=== PATIENT | male | born 1950 | race Caucasian/White ===

== ENCOUNTER → 2017-06-12 | Day surgery (SDC) | payer OTHER ==
[~2017-06-12] VITALS: Ht 185.4 cm; Wt 102.1 kg
[~2017-06-12] MED LIST: ANTIVERT/2525 MG PO; LISINOPRIL10 M1 PO; ULORIC40 MG PO; VERTICALM25 MG PO; ZOFRAN ODT4 MG SL
--- NOTE | ~2017-06-12 | O ---
[place], [place] OPERATIVE NOTE NAME: NATALIO MARTÍNEZ UNIT #: [id number] ROOM: DOCTOR: ALLISON PEÑA MD BIRTHDATE: [birth year] DOS: 06/12/2017 GASTROENDOSCOPIC REPORT INDICATIONS: This is a 66-year-old patient has presented for colonic screening, undergone investigation. ALLERGIES: No known medication. FAMILY HISTORY: Noncontributory. PAST SURGICAL HISTORY: Carpal tunnel right inguinal hernia. PAST MEDICAL HISTORY: Hypertension. SOCIAL HISTORY: Nonsmoker, nonalcohol consumer. PROCEDURE: Today's procedure part of investigation is colonoscopy. PREMEDICATION: Versed and Diprivan. SCOPE: Olympus folding colonoscope 10L video. REPORT: After putting the patient in left lateral position and application of lubricant to the scope, the scope was introduced. Thereafter, under direct visualization, advanced through the length of colon without difficulty. Base of the cecum explored, appendiceal was identified. Ileocecal valve was defined. No acute pathology was identified. Photographic series ____ base of cecum obtained. Scope was gradually withdrawn from ascending, transverse, descending colon. Air was suctioned out. The patient was extubated, tolerated the procedure well. IMPRESSION: Normal colonoscopic examination. PLAN AND DISCUSSION: High fiber fruit diet. ACTIVITY: Ad kory. FOLLOWUP: Routinely with you in office p.r.n., visit with us in GI Clinic. Thank you very much again for your kind referral. [place], [place] OPERATIVE NOTE NAME: NATALIO MARTÍNEZ UNIT #: [id number] ROOM: DOCTOR: ALLISON PEÑA MD BIRTHDATE: [birth year] ALLISON PEÑA MD CM:OPRECORD:OPERATIVE NOTE [id number] CECELIA PEÑA MD 06/12/17 1123 interface
[2017-06-12 08:50] VITALS: BP 130/72
[2017-06-12 10:30] VITALS: BP 98/58
[2017-06-12 10:45] VITALS: BP 109/72
[2017-06-12 11:00] VITALS: BP 115/74
== END ==
LOC: SDC 06-05 08:45
DX: Z12.11 Encounter for screening for malignant neoplasm of colon (principal); I10 Essential (primary) hypertension; Z79.899 Other long term (current) drug therapy; M10.9 Gout, unspecified
CPT/HCPCS: 00812; G0121

== ENCOUNTER 2017-12-04 21:13 | Emergency (ER) | payer OTHER ==
[~2017-12-04] VITALS: Ht 185.4 cm; Wt 98.0 kg
--- NOTE | ~2017-12-04 | EKG ---
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
[2017-12-04 22:17] LABS: BASO % 0.6 % (0.0-1.0); EOS # 0.2 10*3/uL (0.0-0.4); EOS % 5.8 % (1.0-4.0); HEMATOCRIT 40.6 % (42.0-52.0); HEMOGLOBIN 13.8 g/dl (14.0-18.0); LYMPH # 0.9 10*3/uL (1.3-4.4); LYMPH % 25.7 % (27.0-41.0); MEAN CORPUSCULAR HGB 30.9 pg (27.0-31.0); MEAN PLATELET VOLUME 10.9 fl (9.6-12.3); MONO # 0.4 10*3/uL (0.1-1.0); MONO % 12.9 % (3.0-9.0); NEUT # 1.9 10*3/uL (2.3-7.9); NEUT % 54.4 % (47.0-73.0); PLATELET COUNT AUTOMATED 154 10*3/uL (130-400); RED BLOOD COUNT 4.46 10*6/uL (4.50-5.90); RED CELL DISTRI WIDTH 12.7 % (0-14.5); WHITE BLOOD COUNT 3.4 10*3/uL (4.8-10.8)
[2017-12-04 22:39] LABS: ALKALINE PHOSPHATASE 65 U/L (45-117); BUN 22 mg/dl (7-24); CHLORIDE 107 mmol/L (98-107); CREATININE 1.33 mg/dL (0.70-1.30); LIPASE 197 U/L (73-393); POTASSIUM 3.9 mmol/L (3.5-5.1); SGOT/AST 32 IU/L (3-35); SGPT/ALT 55 U/L (12-78); SODIUM 141 mmol/L (136-145); TOTAL PROTEIN 7.5 gm/dL (6.4-8.2)
[2017-12-04 22:42] LABS: TROPONIN I < 0.015 ng/ml (<0.045)
[2017-12-04] MEDS ORDERED: MECLIZINE HCL25 M2 PO (23:31)
[2017-12-04] MEDS ORDERED: ZOFRAN ODT4 MG SL (23:31)
== END 2017-12-04 23:54 | disposition home or self-care (01) ==
LOC: ED 21:13
PROVIDERS: Emergency Medicine Emergency Medical Services
DX: H83.09 Labyrinthitis, unspecified ear (principal); Z79.899 Other long term (current) drug therapy

== ENCOUNTER 2019-04-05 14:05 | Inpatient (IN) | payer OTHER ==
[2019-04-05] VITALS (7 sets, daily range): BP systolic 107–137; BP diastolic 56–70
[~2019-04-05] VITALS: Ht 185.4 cm; Wt 96.2 kg
[~2019-04-05 14:05] MED LIST changes: +BACTRIM 400-801 EACH PO; +MECLIZINE HCL25 M2 PO
[2019-04-05 14:27] LABS: BASO % 0.3 % (0.0-1.0); EOS # 0.1 10*3/uL (0.0-0.4); EOS % 0.8 % (1.0-4.0); HEMATOCRIT 36.4 % (42.0-52.0); LYMPH # 0.6 10*3/uL (1.3-4.4); LYMPH % 10.6 % (27.0-41.0); MEAN CELL VOLUME 91.5 fl (80.0-94.0); MEAN CORPUSCULAR HGB 30.2 pg (27.0-31.0); MEAN PLATELET VOLUME 10.2 fl (9.6-12.3); MONO # 0.7 10*3/uL (0.1-1.0); MONO % 11.6 % (3.0-9.0); NEUT # 4.6 10*3/uL (2.3-7.9); NEUT % 76.2 % (47.0-73.0); PLATELET COUNT AUTOMATED 335 10*3/uL (130-400); RED BLOOD COUNT 3.98 10*6/uL (4.50-5.90)
[2019-04-05 14:41] LABS: ACT PARTIAL THROMBO TIME 28.2 SECONDS (20.0-32.1)
[2019-04-05 14:44] LABS: ALBUMIN 3.4 gm/dl (3.1-4.5); ALKALINE PHOSPHATASE 77 U/L (45-117); BUN 47 mg/dl (7-24); CHLORIDE 107 mmol/L (98-107); CREATININE 2.14 mg/dL (0.70-1.30); POTASSIUM 4.6 mmol/L (3.5-5.1); SGOT/AST 44 IU/L (3-35); SGPT/ALT 66 U/L (12-78); SODIUM 137 mmol/L (136-145); TOTAL PROTEIN 7.9 gm/dL (6.4-8.2)
[2019-04-05 15:08] LABS: TROPONIN I < 0.015 ng/ml (<0.045)
--- NOTE | 2019-04-05 15:40 | NUR ---
PT TO CT RATES PAIN AT /10 DOWN FROM 7/10 UPON ARRIVAL
[2019-04-05 16:07] LABS: BILIRUBIN NEGATIVE (NEGATIVE); BLOOD NEGATIVE (NEGATIVE); CLARITY CLEAR (CLEAR); COLOR YELLOW (YELLOW); GLUCOSE NEGATIVE (NEGATIVE); KETONE NEGATIVE (NEGATIVE); LEUKO ESTERASE TRACE (NEGATIVE); NITRITE NEGATIVE (NEGATIVE); SPECIFIC GRAVITY 1.015 (1.005-1.030); UROBILINOGEN 0.2 E.U./dl (0.2-1.0)
--- NOTE | 2019-04-05 16:12 | NUR ---
PT REPORTS SOME LEFT HAND NUMBNESS RETURNING
[2019-04-05 16:13] LABS: BACTERIA TRACE
[2019-04-05 16:14] LABS: EPITHELIAL CELLS 0-2
--- NOTE | 2019-04-05 16:14 | NUR ---
PT GIVEN WARM BLANKET PILLOW AND BED ADJUSTMENT TO PT POSITION OF COMFORT
--- NOTE | 2019-04-05 17:40 | NUR ---
PT EATING DINNER TRAY AT THIS TIME. TOLERATING WELL.
--- NOTE | 2019-04-05 18:05 | NUR ---
PT AMBULATED TO BATHROOM WITH NO DIFFICULTY AT THIS TIME. WILL CONTINUE TO MONITOR.
--- NOTE | 2019-04-05 18:35 | NUR ---
Time: 1834 A 68 year old M admitted to 5E under services of CASI FOY DO. Pt. arrived via wheel chair from ER. Chief complaint: GEN WEAKNESS. DIZZINESS. EPIGASTRIC PAIN X 1 WK. LEFT HAND NUMBNESS. BANDAR DEL ANGEL
[2019-04-05] MEDS ORDERED: ZESTORETIC 10-1 EACH PO (18:52)
[2019-04-05] MEDS ORDERED: ASPIR LOW81 MG PO (18:53)
[2019-04-06] VITALS: BP 120/57
--- NOTE | 2019-04-06 01:21 | NUR ---
RESTING IN BED WITH EYES CLOSED. AROUSES TO VERBAL STIMULI. DENIES COMPLAINTS OF PAIN OR DISCOMFORT. RESPIRATIONS REGULAR AND NON-LABORED. IV FLUIDS INFUSING ORDERED. WILL CONTINUE TO MONITOR. CALL LIGHT IN REACH.
--- NOTE | 2019-04-06 03:46 | NUR ---
PATIENT MEDICATED WITH TYLENOL FOR C/O BILATERAL SHOULDER ACHING AND LOW GRADE FEVER OF 100.4. WILL CONTINUE TO MONITOR. CALL LIGHT IN REACH.
[2019-04-06 06:06] LABS: BASO % 0.2 % (0.0-1.0); EOS # 0.1 10*3/uL (0.0-0.4); EOS % 1.1 % (1.0-4.0); HEMATOCRIT 33.4 % (42.0-52.0); HEMOGLOBIN 10.5 g/dl (14.0-18.0); LYMPH # 0.5 10*3/uL (1.3-4.4); LYMPH % 11.4 % (27.0-41.0); MEAN CELL VOLUME 90.8 fl (80.0-94.0); MEAN CORPUSCULAR HGB 28.5 pg (27.0-31.0); MEAN CORPUSCULAR HGB CONC 31.4 g/dl (33.0-37.0); MEAN PLATELET VOLUME 10.2 fl (9.6-12.3); MONO # 0.6 10*3/uL (0.1-1.0); MONO % 13.8 % (3.0-9.0); NEUT # 3.3 10*3/uL (2.3-7.9); NEUT % 73.3 % (47.0-73.0); PLATELET COUNT AUTOMATED 274 10*3/uL (130-400); RED BLOOD COUNT 3.68 10*6/uL (4.50-5.90); RED CELL DISTRI WIDTH 12.1 % (0-14.5); WHITE BLOOD COUNT 4.6 10*3/uL (4.8-10.8)
[2019-04-06 06:33] LABS: ALBUMIN 2.7 gm/dl (3.1-4.5); CREATININE 1.52 mg/dL (0.70-1.30); POTASSIUM 4.5 mmol/L (3.5-5.1); TOTAL PROTEIN 6.6 gm/dL (6.4-8.2)
--- NOTE | 2019-04-06 07:52 | NUR ---
PATIENT GIVEN PO DULCOLAX PER PRN ORDER FOR C/O CONSTIPATION. PT STATES NO BM FOR 4 DAYS NOW. ABD SOFT, NON-DISTENDED. HYPOACTIVE BS X4 QUADS. WILL MONITOR EFFECTIVENESS. CALL LIGHT WITHIN REACH.
[2019-04-06 08:00] VITALS: BP 122/76
[2019-04-06 12:00] VITALS: BP 124/60
--- NOTE | 2019-04-06 14:08 | NUR ---
Discharge instructions reviewed with patient/family. Patient receptive and verbalizes understanding. Follow-up care arranged. Written instructions given to patient/family. SHMUEL CALLES.
--- NOTE | 2019-04-06 14:28 | NUR ---
Furnace Operator And Tender in to talk to patient. Patient states lives at HOME with AND SON. There are FEW steps in the home. Physician: SARI Pharmacy: [facility] Home health services: NONE Patient's level of ADLs: INDEPENDENT Patient has working utilities: YES DME: NONE Follow-up physician's appointment after d/c: WILL BE MADE BY HOSPITALIST NURSE DIRECTOR ON DISCHARGE Does patient want to access PORTAL?: NO Discharge plan PT LIVES AT HOME WITH HIS AND SON AND IS INDEPENDENT IN HIS CARE. DENIES HE WILL HAVE ANY NEEDS ON DISCHARGE. PLANS TO RETURN HOME. WILL CONTINUE TO FOLLOW. STATES HE WILL HAVE A RIDE HOME. [place] GONSALEZ
--- NOTE | 2019-04-06 14:43 | NUR ---
PATIENT DISCHARGED AT THIS TIME. BELONGINGS WITH PATIENT.
== END 2019-04-06 14:45 | disposition home or self-care (01) | DRG 391 ==
LOC: ED 14:05 → EDHOLD 16:39 → 5E 16:39
PROVIDERS: Family Medicine; Nurse Practitioner Family; ADMIT Internal Medicine
DX: R10.9 Unspecified abdominal pain (principal); N17.0 Acute kidney failure with tubular necrosis; D64.9 Anemia, unspecified; R74.0 Nonspecific elevation of levels of transaminase and lactic acid dehydrogenase [LDH]; K76.0 Fatty (change of) liver, not elsewhere classified; N20.0 Calculus of kidney; K80.20 Calculus of gallbladder without cholecystitis without obstruction

== ENCOUNTER 2019-11-13 09:35 | Emergency (ER) | payer OTHER ==
[~2019-11-13] VITALS: Ht 182.8 cm; Wt 96.2 kg
[~2019-11-13 09:35] MED LIST changes: +ASPIR LOW81 MG PO; +ZESTORETIC 10-1 EACH PO
[2019-11-13] MEDS ORDERED: SEPTDS PO (10:07)
[2019-11-13] MEDS ORDERED: ANTIBIOTIC28.4 GM T (10:07)
== END 2019-11-13 11:13 | disposition home or self-care (01) ==
LOC: ED 09:35
DX: S69.92XA Unspecified injury of left wrist, hand and finger(s), initial encounter (principal); I10 Essential (primary) hypertension; M10.9 Gout, unspecified; Z79.899 Other long term (current) drug therapy; X58.XXXA Exposure to other specified factors, initial encounter; Y93.89 Activity, other specified; Y92.89 Other specified places as the place of occurrence of the external cause; Y99.8 Other external cause status

== ENCOUNTER 2020-10-20 18:12 | Emergency (ER) | payer OTHER ==
[~2020-10-20] VITALS: Ht 180.3 cm; Wt 98.9 kg
[~2020-10-20 18:12] MED LIST changes: +ANTIBIOTIC28.4 GM T; +SEPTDS PO
[2020-10-20 19:05] LABS: BASO % 0.4 % (0.0-1.0); EOS # 0.1 10*3/uL (0.0-0.4); EOS % 0.9 % (1.0-4.0); HEMATOCRIT 40.8 % (42.0-52.0); LYMPH # 0.6 10*3/uL (1.3-4.4); LYMPH % 6.4 % (27.0-41.0); MEAN CELL VOLUME 88.7 fl (80.0-94.0); MEAN CORPUSCULAR HGB CONC 33.8 g/dl (33.0-37.0); MEAN PLATELET VOLUME 10.6 fl (9.6-12.3); MONO # 0.6 10*3/uL (0.1-1.0); NEUT # 8.5 10*3/uL (2.3-7.9); NEUT % 85.9 % (47.0-73.0); PLATELET COUNT AUTOMATED 201 10*3/uL (130-400); RED CELL DISTRI WIDTH 12.2 % (0-14.5); WHITE BLOOD COUNT 9.9 10*3/uL (4.8-10.8)
[2020-10-20 19:28] LABS: ALKALINE PHOSPHATASE 68 U/L (45-117); BUN 25 mg/dl (7-24); CHLORIDE 109 mmol/L (98-107); LIPASE 174 U/L (73-393); POTASSIUM 4.1 mmol/L (3.5-5.1); SGOT/AST 18 IU/L (3-35); SGPT/ALT 32 U/L (12-78); SODIUM 141 mmol/L (136-145); TOTAL PROTEIN 7.4 gm/dL (6.4-8.2)
[2020-10-20 19:31] LABS: TROPONIN I < 0.015 ng/ml (<0.045)
[2020-10-20 20:16] LABS: BILIRUBIN Negative (Negative); BLOOD Negative (Negative); CLARITY Clear (Clear); COLOR Yellow (Yellow); GLUCOSE Negative (Negative); KETONE Negative (Negative); LEUKO ESTERASE Trace (Negative); NITRITE Negative (Negative); PH 6.5 (4.5-8.0); SPECIFIC GRAVITY 1.015 (1.001-1.030); UROBILINOGEN 0.2 E.U./dl (0.0-1.0)
[2020-10-20 20:29] LABS: BACTERIA TRACE; EPITHELIAL CELLS 0-2
[2020-10-21] MEDS ORDERED: MECLIZINE HCL25 M2 PO (18:20)
== END 2020-10-20 23:47 | disposition home or self-care (01) ==
LOC: ED 18:12
PROVIDERS: Physician Assistant
DX: S13.9XXA Sprain of joints and ligaments of unspecified parts of neck, initial encounter (principal); S09.90XA Unspecified injury of head, initial encounter; Z79.899 Other long term (current) drug therapy; Z98.890 Other specified postprocedural states; W19.XXXA Unspecified fall, initial encounter; Y93.89 Activity, other specified; Y92.89 Other specified places as the place of occurrence of the external cause; Y99.8 Other external cause status

== ENCOUNTER → 2021-07-18 | Outpatient (CLI) | payer OTHER ==
[2021-07-18 11:09] LABS: CREATININE 1.42 mg/dL (0.70-1.30); POTASSIUM 4.2 mmol/L (3.5-5.1); TOTAL PROTEIN 7.3 gm/dL (6.4-8.2)
== END | disposition home or self-care (01) ==
LOC: LAB 10:35
PROVIDERS: ATTEND Orthopaedic Surgery
DX: M19.90 Unspecified osteoarthritis, unspecified site (principal); Z79.1 Long term (current) use of non-steroidal anti-inflammatories (NSAID)

== ENCOUNTER 2021-08-19 11:10 | Emergency (ER) | payer OTHER ==
[~2021-08-19] VITALS: Ht 185.4 cm; Wt 97.5 kg
[2021-08-19 11:48] LABS: BASO % 0.8 % (0.0-1.0); EOS # 0.1 10*3/uL (0.0-0.4); EOS % 2.4 % (1.0-4.0); HEMATOCRIT 44.6 % (42.0-52.0); LYMPH # 0.9 10*3/uL (1.3-4.4); LYMPH % 17.2 % (27.0-41.0); MEAN CELL VOLUME 88.7 fl (80.0-94.0); MEAN CORPUSCULAR HGB 29.8 pg (27.0-31.0); MEAN CORPUSCULAR HGB CONC 33.6 g/dl (33.0-37.0); MEAN PLATELET VOLUME 10.2 fl (9.6-12.3); MONO # 0.4 10*3/uL (0.1-1.0); MONO % 7.4 % (3.0-9.0); NEUT # 3.6 10*3/uL (2.3-7.9); PLATELET COUNT AUTOMATED 259 10*3/uL (130-400); RED BLOOD COUNT 5.03 10*6/uL (4.50-5.90); RED CELL DISTRI WIDTH 12.7 % (0-14.5)
[2021-08-19 12:05] LABS: CREATININE 1.49 mg/dL (0.70-1.30); POTASSIUM 4.7 mmol/L (3.5-5.1); TOTAL PROTEIN 7.9 gm/dL (6.4-8.2)
[2021-08-19] MEDS ORDERED: MEDI-MECLIZINE25 MG PO (13:53)
== END 2021-08-19 14:02 | disposition home or self-care (01) ==
LOC: ED 11:10
PROVIDERS: Emergency Medicine
DX: R42 Dizziness and giddiness (principal); R11.2 Nausea with vomiting, unspecified; R11.0 Nausea; Z79.899 Other long term (current) drug therapy; Z98.890 Other specified postprocedural states

== ENCOUNTER → 2023-02-25 | Outpatient (CLI) | payer MEDICARE ==
[~2023-02-25] MED LIST changes: +MEDI-MECLIZINE25 MG PO
== END | disposition home or self-care (01) ==
LOC: ORTHO 01:37
PROVIDERS: ATTEND Orthopaedic Surgery
DX: M17.0 Bilateral primary osteoarthritis of knee (principal); M25.762 Osteophyte, left knee; M25.761 Osteophyte, right knee

== ENCOUNTER 2025-02-03 10:45 | Emergency (ER) | payer MEDICARE ==
[~2025-02-03] VITALS: Ht 185.4 cm; Wt 94.3 kg
[2025-02-03] MEDS ORDERED: LISINOPRIL10 M1 PO (11:02)
[2025-02-03] MEDS ORDERED: HYDROXYCHLOROQ200 M1 PO (11:02)
[2025-02-03] MEDS ORDERED: Pyridostigmine60 MG PO (11:02)
[2025-02-03] MEDS ORDERED: MELOXICAM15 MG PO (11:02)
[2025-02-03 11:26] LABS: BASO # 0.0 10*3/uL (0.0-0.1); BASO % 0.9 % (0.0-1.0); EOS # 0.1 10*3/uL (0.0-0.4); EOS % 2.9 % (1.0-4.0); MEAN CELL VOLUME 92.3 fl (80.0-94.0); MEAN CORPUSCULAR HGB 31.0 pg (27.0-31.0); MEAN PLATELET VOLUME 11.1 fl (9.6-12.3); MONO # 0.5 10*3/uL (0.1-1.0); MONO % 11.3 % (3.0-9.0); NEUT # 3.1 10*3/uL (2.3-7.9); NEUT % 68.9 % (47.0-73.0); NUCLEATED RED BLOOD CELL 0.0 % (0.0-0.0); NUCLEATED RED BLOOD CELL 0.0 10*3/uL (0.0-0.0); PLATELET COUNT AUTOMATED 151 10*3/uL (130-400); RED CELL DISTRI WIDTH 12.9 % (0-14.5)
[2025-02-03 11:46] LABS: BUN 19.0 mg/dl (9-23)
[2025-02-03] MEDS ORDERED: RITONAVIR PO (12:41)
[2025-02-03] MEDS ORDERED: NIRMATRELVIR PO (12:41)
== END 2025-02-03 13:08 | disposition home or self-care (01) ==
LOC: ED 10:45
PROVIDERS: Nurse Practitioner Family
DX: U07.1 COVID-19 (principal); Z79.899 Other long term (current) drug therapy; Z79.82 Long term (current) use of aspirin

== ENCOUNTER 2025-02-22 16:55 | Emergency (ER) | payer MEDICARE ==
[~2025-02-22] VITALS: Ht 185.4 cm; Wt 93.0 kg
[~2025-02-22 16:55] MED LIST changes: +HYDROXYCHLOROQ200 M1 PO; +MELOXICAM15 MG PO; +NIRMATRELVIR PO; +Pyridostigmine60 MG PO; +RITONAVIR PO
[2025-02-22] MEDS ORDERED: SODIUM CHLORIDE 0.9% 1,000 ML IV SCH (17:30)
[2025-02-22] MEDS ORDERED: Ondansetron Hydrochloride 4 MG/2 ML VIAL IV ONE (17:30)
[2025-02-22 17:46] LABS: BASO # 0.0 10*3/uL (0.0-0.1); BASO % 0.3 % (0.0-1.0); EOS # 0.0 10*3/uL (0.0-0.4); EOS % 0.0 % (1.0-4.0); MEAN CELL VOLUME 90.4 fl (80.0-94.0); MEAN CORPUSCULAR HGB 30.8 pg (27.0-31.0); MEAN PLATELET VOLUME 10.5 fl (9.6-12.3); MONO # 0.6 10*3/uL (0.1-1.0); MONO % 7.2 % (3.0-9.0); NEUT # 6.8 10*3/uL (2.3-7.9); NEUT % 89.2 % (47.0-73.0); NUCLEATED RED BLOOD CELL 0.0 % (0.0-0.0); NUCLEATED RED BLOOD CELL 0.0 10*3/uL (0.0-0.0); PLATELET COUNT AUTOMATED 121 10*3/uL (130-400); RED CELL DISTRI WIDTH 12.3 % (0-14.5)
[2025-02-22 18:11] LABS: BUN 17.0 mg/dl (9-23); SGPT/ALT 27.0 U/L (5-49)
[2025-02-22 18:45] LABS: BILIRUBIN Negative (Negative); BLOOD Negative (Negative); CLARITY Clear (Clear); COLOR Yellow (Yellow); KETONE Trace (Negative); LEUKO ESTERASE Trace (Negative); NITRITE Negative (Negative); PH 5.5 (4.5-8.0); SPECIFIC GRAVITY 1.020 (1.001-1.030); UROBILINOGEN 1.0 E.U./dl (0.0-1.0)
[2025-02-22 19:10] LABS: BACTERIA 1+; MUCOUS 2+
[2025-02-22] MEDS ORDERED: ACETAMINOPHEN 325 MG TAB PO ONE (19:20)
[2025-02-22] MEDS ORDERED: Ondansetron4 MG PO (21:05)
== END 2025-02-22 21:22 | disposition home or self-care (01) ==
LOC: ED 16:55
PROVIDERS: Nurse Practitioner Family
DX: B34.9 Viral infection, unspecified (principal); K52.9 Noninfective gastroenteritis and colitis, unspecified; N18.9 Chronic kidney disease, unspecified

== ENCOUNTER 2025-05-03 09:54 | Emergency (ER) | payer MEDICARE ==
[~2025-05-03] VITALS: Ht 185.4 cm; Wt 92.1 kg
[~2025-05-03 09:54] MED LIST changes: +Ondansetron4 MG PO
[2025-05-03] MEDS ORDERED: MG-AL HYDROXIDE/SIMETICONE 30 ML UDC PO ONE (10:50)
[2025-05-03 11:00] LABS: BASO # 0.1 10*3/uL (0.0-0.1); BASO % 1.0 % (0.0-1.0); EOS # 0.3 10*3/uL (0.0-0.4); EOS % 5.2 % (1.0-4.0); MEAN CELL VOLUME 92.9 fl (80.0-94.0); MEAN CORPUSCULAR HGB 30.3 pg (27.0-31.0); MEAN PLATELET VOLUME 9.9 fl (9.6-12.3); MONO # 0.5 10*3/uL (0.1-1.0); MONO % 8.2 % (3.0-9.0); NEUT # 3.9 10*3/uL (2.3-7.9); NEUT % 64.9 % (47.0-73.0); NUCLEATED RED BLOOD CELL 0.0 % (0.0-0.0); NUCLEATED RED BLOOD CELL 0.0 10*3/uL (0.0-0.0); PLATELET COUNT AUTOMATED 228 10*3/uL (130-400); RED CELL DISTRI WIDTH 12.6 % (0-14.5)
[2025-05-03 11:22] LABS: BUN 17 mg/dl (9-23); SGPT/ALT 21 U/L (5-49)
[2025-05-03] MEDS ORDERED: OMEPRAZOLE40 MG PO (13:19)
== END 2025-05-03 14:29 | disposition home or self-care (01) ==
LOC: ED 09:54
PROVIDERS: Emergency Medicine
DX: R07.89 Other chest pain (principal); K21.9 Gastro-esophageal reflux disease without esophagitis; I10 Essential (primary) hypertension; M10.9 Gout, unspecified; Z86.16 Personal history of COVID-19